=== PATIENT | female | born 1955 | race Caucasian/White ===

== ENCOUNTER 2025-02-21 08:08 | Day surgery (SDC) | payer OTHER, SELFPAY ==
[2025-02-13 10:43] VITALS: BMI 33.6
[2025-02-13 11:23] LABS: % Basophils 0.4 % (0-2); % Eosinophils 2.4 % (0-6); % Immature Granulocytes 0.6 % (0-0.5); % Lymphocytes 29.2 % (20.5-51.1); % Monocytes 6.7 % (1.7-9.3); % Neutrophils 60.7 % (42.2-75.2); Absolute Eosinophils 0.2 10^3/uL (0-0.7); Absolute Lymphocytes 2.1 10^3/uL (1.2-3.4); Absolute Monocytes 0.5 10^3/uL (0.1-0.6); Absolute Neutrophils 4.3 10^3/uL (1.4-6.5); Hematocrit 38.7 % (37.0-47.0); Hemoglobin 13.2 g/dL (12.0-16.0); Mean Corp Hgb Conc. 34.1 g/dL (33.0-37.0); Mean Corpuscular Volume 90.8 fL (81.0-99.0); Mean Platelet Volume 9.5 fL (7.4-10.4); Nucleated Red Blood Cells % 0 %; Platelet Count 254 10^3/uL (130-400); Red Blood Cell Count 4.26 10^6/uL (4.20-5.40); Red Cell Dist. Width 13.6 % (11.5-14.5)
[2025-02-13 11:45] LABS: INR 1.21; PT 15.8 Sec (11.4-14.6)
--- NOTE | 2025-02-13 11:58 | HPS.HSE ---
Family Physician
-
Family Physician: Judi Diaz
Chief Complaint
-
Paroxysmal atrial fibrillation.
History of Present Illness
The patient is a 68 year old female presenting today for paroxysmal atrial fibrillation. She does report a history of palpitations and significant fatigue associated with this diagnosis. She has undergone 4 previous cardioversions and
pulmonary vein isolation in October 2023 secondary to her arrhythmia. She is on current pharmacological therapy with Propafenone and Atenolol. She was previously taking Flecainide but this was discontinued after her previous ablation. She did
experience lightheadedness and head fogginess while taking that medication. She has been compliant with Eliquis for oral anticoagulation. She would like to proceed with pulmonary vein isolation in the hopes of discontinuing antiarrhythmic therapy
altogether in the near future. She denies any current complaints today such as chest pain, shortness of breath at rest, nausea, vomiting, diarrhea, dizziness, cough, sore throat, or fever.
Medical History
Past Medical History
Past Medical History: Reports Other
Additional Past Medical History:
1. Paroxysmal atrial fibrillation, status post cardioversion x4 and pulmonary vein isolation 10/2023; pharmacological therapy with Propafenone and Atenolol, oral anticoagulation with Eliquis.
2. Atrial tachycardia.
3. Ventricular ectopy.
4. Sinus bradycardia.
5. Hyperlipidemia.
6. Mitral valve prolapse and atrial septal defect, status post mitral valve repair, MAZE cryoablation, ligation of left atrial appendage, and closure of atrial septal defect 05/2020.
7. Chronic right middle lobe atelectasis following mitral valve repair.
8. Pulmonary nodules on chest CT 10/27/2022.
9. GERD.
10. Colon and vocal cord polyps.
11. Irritable bowel syndrome.
12. Fatty liver disease.
13. Bowel obstructions due to adhesions, 2020, treated conservatively.
14. Ischemic CVA, 01/2023, treated with tPA; residual mild balance difficulties and lightheadedness reported.
15. Chronic microhemorrhages on previous brain MRI.
16. Ocular migraines.
17. Vertigo.
18. Chronic low back pain.
19. Osteoarthritis.
20. Fibromyalgia.
21. Aden's thyroiditis.
22. Psoriasis.
23. Anxiety.
24. Osteopenia.
25. Obesity, BMI 33.6.
26. Remote history of tobacco abuse.
Past Surgical History: Reports Other
Additional Past Surgical History:
1. Pulmonary vein isolation.
2. Cardioversion x4.
3. Mitral valve repair, MAZE cryoablation, ligation of left atrial appendage, and closure of atrial septal defect.
4. Cardiac catheterization.
5. Cosmetic neck surgery.
6. Appendectomy.
7. Left foot reconstruction.
8. Colonoscopy x3.
9. Endoscopy x3.
Social History
Tobacco: Former Smoker (Former 1 and 1/2 pack per day cigarette smoker who quit tobacco altogether in 1988.)
Alcohol: Other (Rare. )
Personal:
Living: Other (She lives in a 2 story home with her .)
Family History
Family History: Not pertinent
Allergies / Home Medications
Allergy/Medication List:
Home medications:
1. Apixaban 5 mg p.o. twice a day.
2. Atenolol 12.5 mg p.o. at bedtime.
3. Propafenone 325 mg p.o. every 12 hours.
4. Levothyroxine 75 mcg p.o. Mondays, Wednesdays, and Fridays.
5. Levothyroxine 50 mcg p.o. Sundays, Tuesdays, , and Saturdays.
6. Vitamin D3 100 mcg p.o. daily.
7. Clobetasol 1 application topical daily.
8. Nurtec ODT 75 mg p.o. daily as needed.
Allergies: Diltiazem. Dilaudid. Metamucil.
Review of Systems
-
A 12 point ROS was completed and negative except as noted: Yes
Physical Exam
Vital Signs
Blood pressure 129/75. Heart rate 58. Respirations 18. Pulse ox 99% on room air.
Height 5 feet, 2 inches. Weight 83.3 kg. BMI 33.6.
Physical Exam
General: Well Developed, Well Nourished and No Apparent Distress
HEENT: NormoCephalic, Moist mucous membranes, Atraumatic and PERRLA
Respiratory: Clear
Cardiac: Regular Rhythm
GI: Soft, Non Tender, Non Distended and Other (Obese. )
Musculoskeletal: No Edema and Normal Gait & Station
Skin: Warm and Dry
Neuro: AO x 3 and Nonfocal/grossly intact
Laboratory Results
-
02/13/25 10:56
Laboratory Results
PT 15.8 Sec (11.4-14.6) H 02/13/25 10:56
INR 1.21 02/13/25 10:56
DIAGNOSTIC STUDIES as of 02/13/2025: Sodium 141. Potassium 4.1. BUN 16. Creatinine 0.7. Glucose 91. Calcium 9.2. Magnesium 1.9. AST 25. ALT 29. Albumin 3.5. Type and screen O positive.
EKG 02/13/2025: Normal sinus rhythm with first degree AV block. Low voltage QRS.
Echocardiogram 02/01/2024: Left atrial enlargement. Adequately functioning mitral valve repair with trivial to mild possibly paravalvular mitral regurgitation. Normal left and right ventricular systolic function. Top normal to mildly elevated right
ventricular system pressure. Normal diastolic function.
Chest CT 10/27/2023: Separate right superior, right inferior, left superior, and left inferior pulmonary veins draining into the left atrium. No CT evidence for supernumerary pulmonary vein, common ostium, or anomalous pulmonary venous return.
Moderate enlargement of the left atrium. Previous mitral valve repair and left atrial appendage exclusion. Thick band of segmental atelectasis in the lateral segment of the right middle lobe. Tiny solid pulmonary nodules in the left lower lobe
measuring less than 3 mm in size.
Impression/Plan
-
IMPRESSION/PLAN:
1. Paroxysmal atrial fibrillation: The patient is in need of pulmonary vein isolation with Dr. Landry Darden on 02/21/2025. The benefits and risks of the procedure have been explained to the patient. The patient understands these risks and wishes to
proceed. She will not be required to undergo a pre-procedural transesophageal echocardiogram as she has been compliant with her home oral anticoagulation. She is aware to hold her Eliquis the morning of her procedure. She will take no medications
the morning of her ablation.
[2025-02-13 12:03] LABS: ALT (SGPT) 29 U/L (0-35); AST (SGOT) 25 U/L (14-36); Albumin 3.5 g/dl (3.5-5.0); Alkaline Phosphatase 70 U/L (38-126); Blood Urea Nitrogen 16 mg/dl (7-17); Calcium 9.2 mg/dl (8.4-10.2); Carbon Dioxide 28 mmol/L (22-30); Chloride 108 mmol/L (98-107); Estimated Creatinine Clearance 78 ml/min; Glucose 91 mg/dl (70-99); Magnesium 1.9 mg/dl (1.6-2.3); Potassium 4.1 mmol/L (3.5-5.1); Sodium 141 mmol/L (135-145); Total Bilirubin 0.8 mg/dl (0.2-1.3); Total Protein 5.9 g/dl (6.3-8.2); eGFR > 60.00
[2025-02-21] VITALS (23 sets, daily range): BP systolic 91–123; BP diastolic 57–78; BMI 32.9
[2025-02-21] MEDS: TRANSDERM-SCOP 1 PATCH TRANSDERM (09:10)
[2025-02-21 11:18] LABS: ACT-LR - POC 273 Seconds (116-155)
[2025-02-21 11:42] LABS: ACT-LR - POC 284 Seconds (116-155)
--- NOTE | 2025-02-21 12:31 | ITS.CL.ABL ---
Insect Control Inspector - Ablation
Ablation
Procedure Report:
ELECTROPHYSIOLOGY ABLATION STUDY
DATE:: February 21, 2025�����������������������������REFERRING: Dr. Sancho Barnes
INDICATION: Paroxysmal supraventricular tachycardia in the form of atrial fibrillation.��Prior cryoballoon ablation in October 2019 for an prior mitral valve repair and surgical maze with left atrial appendage clip
HISTORY: See H and P.��As above
ANTIARRHYTHMIC DRUG: Vivian antiarrhythmic drug therapy the patient opted for ablation
PRE-PROCEDURE ZAC: She has a small vestigial appendage without clot and a clipped left atrial appendage for prior surgery which is stable compared to prior interrogations
PRESENTING RHYTHM: Sinus rhythm
'TIME-OUT':��called and confirmed.
SEDATION/ANESTHESIA:��provided via the anesthesia department using general anesthesia (LMA).
INTRAVENOUS/ARTERIAL ACCESS:
Right femoral venous - 10 Fr,
Left femoral venous - 8 Fr, 6 Fr
Left femoral arterial - 5 Fr
Ultrasound guidance for bilateral femoral vein access was utilized by me to obtain access with demonstration of normal anatomy
CHADS-VASC Score:
HAS-Bled Score
PROCEDURE:
1.��A decapolar CS catheter was placed within the CS for mapping and pacing.��This was also used as the reference catheter for the 3-D map. The patient was only inducible for atrial fibrillation. Atrial fibrillation did terminate during ablation
at the mitral isthmus and at the base of the left atrial appendage. With atrial extrastimuli, burst pacing down to atrial refractoriness from both atria down to atrial refractoriness at multiple sites only atrial fibrillation was inducible. This
was once which terminated after ablation at the base of left atrial appendage. After this repeat stimulation with the above maneuvers could not induce any other tachyarrhythmia. As such we do not perform additional ablation beyond what was
described as below.
2. The intracardiac ultrasound catheter was positioned in the RA to identify the FO for targeting of transseptal puncture, assist��in identification of the pulmonary vein ostia, monitoring pre and post ablation pulmonary vein flow velocities,
monitoring for 'bubble' formation during RF application as a sign of thermal injury,��and to monitor for pericardial effusion during mapping and ablation procedure.���Left atrial size, LV ejection fraction, and pulmonary vein flows were monitored
pre and post ablation procedure. The other valves were inspected and found to be free of significant regurgitation or stenosis.
3.��Half of the calculated heparin bolus was administered prior to the first transeptal puncture.��Transseptal puncture was performed to diagnose RA and LA pressure so that safety of LA mapping and ablation could be further assessed, and to access
the left atrium and pulmonary veins for mapping and ablation.��This entailed advancing an 8 Fr SL-1 sheath with dilator into the superior vena cava and withdrawing both (monitoring intracardiac ultrasound, fluoroscopy and tip pressure) with the tip
oriented toward the atrial septum.��The fossa ovalis was engaged (indicated by sudden displacement of the sheath tip as well as tenting of the fossa seen on intracardiac ultrasound).��Left atrial access required a pass with the Brockenbrough needle
extended.��Left atrial catheter position was confirmed by pressure monitoring (RA mean pressure 8 mm Hg and LA mean presure 14 mm Hg), LA saturation (99%),��as well as fluoroscopy.��The sheath was advanced over the dilator and positioned in the left
atrium.��This procedure was repeated for the Agilis sheath.��The remainder of the calculated heparin bolus was administered and heparin was
infused to maintain ACT at 300 -350 seconds throughout the case.
4.��RA pacing was performed via the proximal decapolar poles and LA pacing was performed via the distal decapolr poles.
5. A quadrapolar catheter was first positioned at the His position for His Bundle recording which was tagged via the 3-D Navex sytem, and then passed to the RVA for RV pacing and recording.
6. The lattice catheter was placed in each of the LIPV, LSPV, RSPV and the RIPV.��The pulmonary veins and the left atrial posterior wall from roof to floor was isolated at baseline.
7.��Next, a 3-D map was created using Navex.���A 3-D reconstructed CT image was compared to the 3-D Navex map to assist in anatomic interpretation, mapping and ablation.��The CT image and the NavX image were fused.
8. Given only inducibility for atrial fibrillation with the above maneuvers we performed available substrate modification in the left atrium. The interatrial septum was ablated at areas of healthy electroanatomic voltage, in addition a box lesion
set in the posterior wall, a mitral isthmus line from the left inferior pulmonary vein down to the mitral valve annulus and additional ablation at the base of left atrial appendage and in the vestigial stump of the left atrial appendage proper prior
to the area excluded by the left atrial appendage clip. At the valve ring under direct ultrasound guidance radiofrequency energy was delivered in the first centimeter back from the ring and then PFA lesions were given from the mid mitral isthmus
back to the left inferior pulmonary vein. There is no change in ST segments and there was no pericardial effusion pre and post procedure. There was bidirectional block across the mitral isthmus intra isthmus conduction time of 170 ms and we paced
bidirectionally from either end of the line.
9. Normal sinus node and AV node function noted. Ablation as above. With lack of inducibility of any right atrial mechanisms no additional ablation was performed.
TOTAL FLOURO TIME: 12.0 minutes 123 mGy
TOTAL RF DURATION: 30 seconds
REVERSAL OF HEPARIN: 30 mg of protamine, slow IV administration
COMPLICATIONS:
None
Intracardiac US shows no pericardial effusion post ablation.
SUMMARY:��
Complex left atrial mapping and ablation.
Targeting of left atrial substrate at the interatrial septum, posterior wall box lesion set, base of the left atrial appendage, and mitral isthmus line from the left inferior pulmonary vein to the lateral mitral valve ring. The pulmonary veins and
posterior wall were isolated at baseline.
RECOMMENDATIONS:
1. Ambulate in 4 hours
2. Resume anticoagulation
3.��Reasonable to discontinue propafenone and if she would have further arrhythmias would consider class III antiarrhythmic with dofetilide
4.��Anticipate discharge later today
Copy to: Dr. Sancho Barnes
--- NOTE | 2025-02-21 15:09 | W.PN.UPDATE ---
Update Note
Progress Note Update
69 yo WF s/p PVI (same day) She denies cp, sob, moustapha diet, EKG SR/SB, b/l groins c/d/i no HT, soft. She will resume Eliquis tonight. We will stop propafenone and continue atenolol. Activity restrictions reviewed. He will f/u Dr. Barnes in 3 mo. He is
for d/c home after 5pm if groins stable and voiding.
[2025-02-21] MEDS: ANESTHETIC LOZENGE 1 LOZENGE PO (16:48)
== END 2025-02-21 17:10 | disposition home or self-care (01) ==
LOC: CATH 08:08
PROVIDERS: ATTENDING PHYSICIAN Internal Medicine Cardiovascular Disease; FAMILY PHYSICIAN Internal Medicine; OTHER PHYSICIAN Internal Medicine Cardiovascular Disease
DX: I48.0 Paroxysmal atrial fibrillation (principal); I47.19 Other supraventricular tachycardia; R00.1 Bradycardia, unspecified; E78.5 Hyperlipidemia, unspecified; Z87.74 Personal history of (corrected) congenital malformations of heart and circulatory system; I34.1 Nonrheumatic mitral (valve) prolapse; R91.8 Other nonspecific abnormal finding of lung field; J38.1 Polyp of vocal cord and larynx; K21.9 Gastro-esophageal reflux disease without esophagitis; K58.9 Irritable bowel syndrome, unspecified; K76.0 Fatty (change of) liver, not elsewhere classified; Z86.73 Personal history of transient ischemic attack (TIA), and cerebral infarction without residual deficits; R42 Dizziness and giddiness; G89.29 Other chronic pain; M19.90 Unspecified osteoarthritis, unspecified site; M79.7 Fibromyalgia; E06.3 Autoimmune thyroiditis; L40.9 Psoriasis, unspecified; M85.80 Other specified disorders of bone density and structure, unspecified site; F41.9 Anxiety disorder, unspecified; E66.9 Obesity, unspecified; Z68.33 Body mass index [BMI] 33.0-33.9, adult; Z79.01 Long term (current) use of anticoagulants; Z79.899 Other long term (current) drug therapy; Z87.891 Personal history of nicotine dependence; Z88.5 Allergy status to narcotic agent; Z90.49 Acquired absence of other specified parts of digestive tract; Z98.890 Other specified postprocedural states; Z79.890 Hormone replacement therapy
CPT/HCPCS: 93662; C1766; C1894; C1730; C1769; C1892; C1759; C1733; 36415; 80053; 83735; 85025; 85347; 85610; 86850; 86900; 86901; 93005; 93462; 93653; 93656; 93657